=== PATIENT | female | born 1975 | race Caucasian/White ===

== ENCOUNTER → 2016-11-04 | Outpatient (CLI) | payer BC ==
[~2016-11-04] MED LIST: FOLI1TAB7 PO; LEVO-217 PO; PRENTAB69 PO; [UNRECOGNIZED DRUG - OTHER] PV
--- NOTE | 2016-11-04 08:48 | DIAGNOSTIC IMAGING REPORT ---
ULTRASOUND OF THE THYROID GLAND CLINICAL HISTORY: Nontoxic multinodular goiter. COMPARISON STUDY: Thyroid ultrasound dated 03/06/2014. TECHNIQUE: Real-time, grayscale, and color flow sonography of the thyroid gland is performed utilizing a high-frequency linear transducer. Images are reviewed in the transverse and longitudinal planes. FINDINGS: Right lobe: The right lobe of the thyroid gland is normal in size and homogeneous in echotexture, measuring 4.9 x 2.0 x 1.8 cm. There are numerous colloid cyst identified in the right lobe measuring up to 1.3 cm. Left lobe: The left lobe of the thyroid gland is normal in size and homogeneous in echotexture, measuring 5.1 x 1.6 x 1.9 cm. There are numerous colloid cyst identified in the left lobe of measuring up to 1.0 cm. Isthmus: The thyroid isthmus is normal in appearance and measures 0.4 cm in AP diameter. IMPRESSION: 1. The thyroid gland is normal in size and echotexture. 2. Numerous bilateral colloid cysts are identified and overall similar in appearance to the 2014 examination. Electronically signed by: Nadeem Engel M.D. 11/04/2016 8:46 AM Dictated Date/Time: 11/04/2016 8:39 AM
== END | disposition home or self-care (01) ==
LOC: C.ULTR 10-31 14:40
PROVIDERS: ATTEND Internal Medicine Endocrinology, Diabetes & Metabolism
DX: E04.2 Nontoxic multinodular goiter (principal)

== ENCOUNTER → 2016-11-05 | Outpatient (CLI) | payer BC ==
[2016-11-05 17:22] LABS: BASO % 0.1 %; BASO ABS # 0.01 K/uL (0-0.2); COMPLETE YES; EOS % 1.8 %; HEMATOCRIT 40.3 % (37-47); IG% 0.2 %; LYMPH % 24.1 %; LYMPH ABS # 2.53 K/uL (1.2-3.4); MEAN CELL VOLUME 87.8 fL (80-100); MEAN CORPUSCULAR HEMOGLOBIN 31.2 pg (25-34); MEAN CORPUSCULAR HGB CONC 35.5 g/dl (32-36); MEAN PLATELET VOLUME 10.8 fL (7.4-10.4); MONO % 7.1 %; NEUT % 66.7 %; PLATELET COUNT 258 K/uL (130-400); RED BLOOD COUNT 4.59 M/uL (4.2-5.4); WHITE BLOOD COUNT 10.48 K/uL (4.8-10.8)
[2016-11-05 17:41] LABS: BLOOD UREA NITROGEN 16 mg/dl (7-18); BUN/CREATININE RATIO 21.6 (10-20); C-REACTIVE PROTEIN < 0.29 mg/dl (0-0.29); CALCIUM 8.9 mg/dl (8.5-10.1); CARBON DIOXIDE 26 mmol/L (21-32); CHLORIDE 105 mmol/L (98-107); CREATININE 0.75 mg/dl (0.60-1.20); GLUCOSE 96 mg/dl (70-99); POTASSIUM 3.9 mmol/L (3.5-5.1); SODIUM 139 mmol/L (136-145)
== END | disposition home or self-care (01) ==
LOC: C.LAB 16:09
PROVIDERS: ATTEND Nurse Practitioner
DX: R51 Headache (principal); H53.8 Other visual disturbances

== ENCOUNTER → 2017-12-04 | Outpatient (CLI) | payer OTHER ==
[~2017-12-04] MED LIST changes: -FOLI1TAB7 PO; +FOLI1TAB8 PO
== END | disposition home or self-care (01) ==
LOC: C.LABBC 08:42
PROVIDERS: ATTEND Nurse Practitioner Family
DX: Z13.220 Encounter for screening for lipoid disorders (principal); E03.9 Hypothyroidism, unspecified; Z13.1 Encounter for screening for diabetes mellitus

== ENCOUNTER → 2018-02-08 | Outpatient (CLI) | payer OTHER | END | disposition home or self-care (01) | LOC: C.PAPS 11:13 | PROVIDERS: ATTEND Obstetrics & Gynecology | DX: Z12.4 Encounter for screening for malignant neoplasm of cervix (principal) ==